=== PATIENT | female | born 1985 ===

== ENCOUNTER 2018-09-21 09:30 | Inpatient (IN) | payer OTHER ==
[~2018-09-21] VITALS: Ht 149.9 cm; Wt 55.3 kg
[~2018-09-21 09:30] MED LIST: PRENATAL 19 TA1 EACH PO
== END 2018-10-11 12:25 | disposition home or self-care (01) | DRG 807 ==
LOC: LDR 10-09 06:46 → OB/GYN 10-09 14:45 → LDR 10-15 09:30
PROVIDERS: ADMIT Obstetrics & Gynecology Maternal & Fetal Medicine
PROC: 10E0XZZ Delivery of Products of Conception, External Approach (ICD-10-PCS; principal; 2018-10-09)
PROC: 0KQM0ZZ Repair Perineum Muscle, Open Approach (ICD-10-PCS; 2018-10-09)
PROC: 0W8NXZZ Division of Female Perineum, External Approach (ICD-10-PCS; 2018-10-09)
PROC: 10907ZC Drainage of Amniotic Fluid, Therapeutic from Products of Conception, Via Natural or Artificial Opening (ICD-10-PCS; 2018-10-09)
PROC: 3E033VJ Introduction of Other Hormone into Peripheral Vein, Percutaneous Approach (ICD-10-PCS; 2018-10-09)
PROC: 4A1HXCZ Monitoring of Products of Conception, Cardiac Rate, External Approach (ICD-10-PCS; 2018-10-09)
DX: O70.1 Second degree perineal laceration during delivery (principal); Z37.0 Single live birth; Z3A.39 39 weeks gestation of pregnancy; Z22.330 Carrier of Group B streptococcus

== ENCOUNTER 2018-10-05 11:17 | Outpatient (CLI) | payer OTHER | END 2018-10-05 12:36 | disposition home or self-care (01) | LOC: NST 11:17 | DX: Z34.83 Encounter for supervision of other normal pregnancy, third trimester (principal) ==